=== PATIENT | female | born 1940 | race Two or more races ===

== ENCOUNTER 2017-06-02 07:02 | Inpatient (IN) | payer OTHER, MEDICARE ==
[~2017-06-02] VITALS: Ht 157.5 cm; Wt 72.4 kg
[2017-06-02] MEDS ORDERED: FLUT50SP EACH NARE (07:52)
[2017-06-02] MEDS ORDERED: RALO1TAB PO (07:52)
[2017-06-02] MEDS ORDERED: OMEP20TA PO (07:52)
[2017-06-02] MEDS ORDERED: CALC950T2 PO (07:52)
[2017-06-02] MEDS ORDERED: VENTAER INH (07:52)
[2017-06-02] MEDS ORDERED: PRAV20TA2 PO (07:52)
[2017-06-02] MEDS ORDERED: LOSA50TA2 PO (07:52)
[2017-06-02] MEDS ORDERED: MONT10TA4 PO (07:55)
[2017-06-02] MEDS ORDERED: ASPI81CH PO (07:55)
[2017-06-02] MEDS ORDERED: POVIDONE IODINE 5% (ANTISEPSIS KIT) 4 APPLICATIONS EACH NARE PRN (08:00)
[2017-06-02] MEDS ORDERED: SODIUM CHLORID 0.9% 500 ML IV PRN (08:00)
[2017-06-02] MEDS ORDERED: ceFAZolin 2 GM PREMIX 50 ML IV SCH (08:00)
[2017-06-02] MEDS ORDERED: CHLORHEXIDINE GLUCONATE 2 % 1 PACK (2 CLOTHS) TOPICAL PRN (08:00)
[2017-06-02] MEDS ORDERED: INSULIN HUMAN REGULAR 1,000 UNITS/10 ML VIAL SQ PRN (08:00)
[2017-06-02] MEDS ORDERED: POVIDONE IODINE 7.5% SCRUB 118 ML BOTTLE TOPICAL SCH (08:00)
[2017-06-02] MEDS ORDERED: METOPROLOL TARTRATE 25 MG TAB PO PRN (08:00)
[2017-06-02] MEDS ORDERED: VANCOMYCIN 1000 MG/NS 250 ML (for <70 kg) IV SCH ×2 (08:00)
[2017-06-02] MEDS ORDERED: CHLORHEXIDINE GLUCONATE 4% SOLN 120 ML BTL TOPICAL SCH (08:00)
[2017-06-02] MEDS ORDERED: LACTATED RINGER'S 1000 ML IV PRN (08:00)
[2017-06-02] MEDS ORDERED: DEXAMETHASONE SOD PHOS 20 MG/5 ML VIAL IV SCH (08:15)
[2017-06-02] MEDS ORDERED: MORPHINE SULFATE 4 MG/ML INJ IV PUSH PRN (08:30)
[2017-06-02] MEDS ORDERED: ACETAMINOPHEN/HYDROcodone 325 MG/7.5 MG TAB PO PRN (08:30)
[2017-06-02] MEDS ORDERED: Post-op Orders (for Pharmacy) MISC XX ONE (08:30)
[2017-06-02] MEDS ORDERED: SODIUM CHLORIDE 0.9% FLUSH 5 ML FLUSH IVF PRN (08:30)
[2017-06-02] MEDS ORDERED: diphenhydrAMINE HCL 50 MG/ML VIAL IV PUSH PRN (08:30)
[2017-06-02] MEDS ORDERED: BISACODYL 10 MG SUPP RECTAL PRN (08:30)
[2017-06-02] MEDS ORDERED: ONDANSETRON HCL 4 MG/2 ML VIAL IVP PRN (08:30)
[2017-06-02] MEDS ORDERED: NALOXONE HCL 0.4 MG/ML AMP IV PRN (08:30)
[2017-06-02] MEDS ORDERED: ASPI81CH14 CHEW (08:31)
[2017-06-02] MEDS ORDERED: ENOX30P SQ (08:31)
[2017-06-02] MEDS ORDERED: HYDR-3288 PO (08:32)
[2017-06-02] MEDS ORDERED: ACETAMINOPHEN 1000 MG/100 ML 100 ML IV ONE (08:53)
[2017-06-02] MEDS ORDERED: GENTAMICIN SULFATE 80 MG/2 ML VIAL ONE (08:55)
[2017-06-02] MEDS ORDERED: NON-FORMULARY DRUG (Losartan-Hydrochlorothiazide 1 TAB) PO SCH (09:00)
[2017-06-02] MEDS: HYDROCHLOROTHIAZIDE 12.5 MG CAP PO SCH (09:00)
[2017-06-02] MEDS ORDERED: SODIUM CHLORIDE 0.9% IV SCH (09:00)
[2017-06-02] MEDS ORDERED: TRANEXAMIC PERI-ARTICULAR 3,000 MG/NS 100 ML P-ARTICULR SCH ×2 (09:00)
[2017-06-02] MEDS: PANTOPRAZOLE SOD 20 MG DELAYED RELEASE TAB PO SCH (09:00)
[2017-06-02] MEDS: CALCIUM/VITAMIN D 250 MG/125 U TAB PO SCH ×2 (09:00→21:20)
[2017-06-02] MEDS: PRAVASTATIN SOD 20 MG TAB PO SCH (09:00)
[2017-06-02] MEDS: LOSARTAN 50 MG TAB PO SCH (09:00)
[2017-06-02] MEDS ORDERED: ROPIVACAINE PERI-ARTICULAR INJECTION. P-ARTICULR SCH ×5 (09:00)
[2017-06-02] MEDS ORDERED: TRANEXAMIC ACID IV SCH (09:00)
[2017-06-02] MEDS: RALOXIFENE HCL 60 MG TAB PO SCH (09:00)
[2017-06-02] MEDS ORDERED: DO NOT ADM ANY ANTICOAGULANT DRUGS PRN (11:55)
[2017-06-02] MEDS ORDERED: *morphine SULFATE 8 MG/ML PERIprocedure ONLY ONE ×2 (11:59→12:15)
[2017-06-02] MEDS ORDERED: PHENYLEPH/NS 1000 MCG/10 ML SYR IV ONE (12:00)
[2017-06-02] MEDS ORDERED: ROCURONIUM INJ 50 MG/5 ML SYRINGE IV PUSH ONE (12:00)
[2017-06-02] MEDS ORDERED: GLYCOPYRROLATE 1 MG/5 ML SYRINGE IV PUSH ONE (12:00)
[2017-06-02] MEDS ORDERED: LACTATED RINGER'S 1000 ML INJ 1,000 ML IV ONE (12:00)
[2017-06-02] MEDS ORDERED: PROPOFOL 200 MG/20 ML AMP IV ONE (12:00)
[2017-06-02] MEDS ORDERED: MIDAZOLAM HCL 2 MG/2 ML VIAL IV ONE (12:00)
[2017-06-02] MEDS ORDERED: ONDANSETRON HCL 4 MG/2 ML VIAL IV PUSH ONE (12:00)
[2017-06-02] MEDS ORDERED: NEOSTIGMINE 3 MG/3 ML SYR IV ONE (12:00)
[2017-06-02] MEDS ORDERED: LIDOCAINE HCL 1% PF 5 ML AMPULE OTHER ONE (12:00)
[2017-06-02] MEDS ORDERED: ePHEDrine/NS 25 MG/5 ML SYR IV ONE (12:00)
--- NOTE | 2017-06-02 12:47 | RADRPT ---
EXAM DATE/TIME: 06/02/2017 12:14 [place] COMPARISON: No previous studies available for comparison. INDICATIONS : Post-op total left knee arthroplasty. MEDICAL HISTORY : None. SURGICAL HISTORY : None. ENCOUNTER: Initial ACUITY: 1 day PAIN SCORE: Non-responsive. LOCATION: Left knee. FINDINGS: AP and lateral views of the knee following arthroplasty reveals a prosthesis in anatomic alignment. F racture is not appreciated. Surgical drain is evident CONCLUSION: Status post total knee arthroplasty. Franck Prajapati MD FACR Board Certified Radiologist. This report was verified electronically.
--- NOTE | 2017-06-02 12:58 | MP ---
cc: JASON PADGETT DATE OF SURGERY 06/02/2017 PREOPERATIVE DIAGNOSIS Left knee osteoarthritis. POSTOPERATIVE DIAGNOSIS Left knee osteoarthritis. PROCEDURE Left total knee arthroplasty. SURGEON Dr. Jason Padgett SHOP SERVICE TECHNICIAN John Paul Erickson PA-C ANESTHESIA General with an adductor canal nerve block. ESTIMATED BLOOD LOSS 50 cc COMPLICATIONS None. IMPLANTS USED DePuy Attune size 6 narrow, posterior stabilized femoral component size 5, rotating platform tibia baseplate; size 6 mm polyethylene tibial insert, size 6 tibial insert, 35 patella. JUSTIFICATION This patient is a 76-year-old family with history of severe end-stage osteoarthritis involving the left knee. She has severe disabling pain with standing, walking, ambulation with weightbearing activities and severe pain at rest. It does interfere with activities of daily living. She has failed greater than three months of nonoperative conservative treatment to include medication therapy, injections, ambulatory assistive aids, home exercise program, activity modification and weight loss. X-rays of the left knee reveal severe end-stage osteoarthritis, [id number] joint space narrowing, subchondral sclerosis, subchondral cysts, osteophyte formation with large varus deformity. The patient was counseled as to the risks, benefits and alternatives to a total knee arthroplasty. The risks were discussed which include but are not limited to anesthesia, bleeding, infection, damage to nerves, blood vessels, pain, stiffness, failure of the components, blood clots, pulmonary embolism and even . The patient favored the benefits over the risks, her pain was severe and she did wish to proceed with surgery. PROCEDURE IN DETAIL Written consent was obtained. The patient was identified by name, taken to the operating room, placed supine on the operating table. General anesthesia was administered as well as 2 grams of IV Ancef and 1 gram of IV vancomycin. A well-padded tourniquet was placed on the left thigh, the left lower extremity prepped and draped using isopropyl alcohol, Hibiclens solution and Chloraprep solution. After time-out was performed, an Esmarch bandage was used to exsanguinate the left lower extremity and the tourniquet inflated to 250 mmHg. A longitudinal incision was made over the anterior aspect of the left knee. A medial parapatellar arthrotomy incision was performed. The patella was everted. The patellar resection guide as used to resect 7 mm of the patella. The size 35-mm guide was placed. Three drill holes were placed and the 35-mm trial fit well. Attention was turned to the femur where an intramedullary guide was placed. The distal femoral guide was set to remove 11 mm of at 5 degrees off the anatomic valgus axis alignment. An oscillating saw was used to perform the distal femoral cut. Attention was turned to the tibia where an extramedullary tibial guide was set to remove 5 mm off the lowest portion of the medial tibial plateau. The tibial guide was pinned in place. The tibia cut was performed. A 5-mm spacer block showed full extension. Attention was turned back to the femur where the AP sizing block measured a size 6. The anterior reference 3-degree external rotation guide was used to pin a size [address] The anterior, posterior and chamfer cuts were performed. The size 6 PCL box guide was pinned in place and the PCL was boxed out with an oscillating saw. The medial and lateral meniscus remnants were removed as well as bone and soft tissue debris from the posterior portion of the knee. A size 5 tibial baseplate was pinned in place, the tibia was drilled and punched. Trial components were evaluated and final components cemented in place. With the polyethylene tibial insert, the leg could achieve full extension to 0 degrees and flexion to approximately 130. Varus-valgus balance appeared appropriate and symmetric. The patella did have some lateral tracking. A lateral release was performed which allowed for central patellar tracking. The tourniquet was deflated, Bovie cautery used for hemostasis. The surgical wound was thoroughly irrigated with sterile saline pulse lavage antibiotic impregnated solution. The arthrotomy incision was closed with #1 Vicryl suture, the subcutaneous tissue with 2-0 Vicryl suture. The skin was closed with Dermabond. Sterile dressing were applied. The patient tolerated the procedure well with no intraoperative complications noted. John Paul Erickson, physician drafter assistant certified, was present during the entire procedure to include patient positioning and the procedure itself. The medical necessity of the physician drafter assistant was indicated in this case due to the complexity of the procedure itself. He assisted with appropriate manipulation of the leg and also retraction of muscle, tendon, bone and neurovascular structures. He assisted also with implantation of the bone and also implantation of the prosthetic replacement. MD JÚNIOR Colón/DARIEL Mcleod: 06/02/2017/11:29 AM /12:30 PM
[2017-06-02] MEDS: SODIUM CHLOR 0.9% 1000 ML INJ 1,000 ML IV SCH ×2 (13:00→21:22)
[2017-06-02] MEDS ORDERED: *ONDANSETRON 4 MG VIAL PERIprocedural Use ONLY ONE (15:34)
--- NOTE | 2017-06-02 16:46 | PD.CONS ---
HPI Service [facility] Consult Requested By Orthopedic surgery Reason for Consult Medical management Primary Care Physician Hunter Arnold MD Diagnoses: (1) Osteoarthritis of left knee (2) HTN (hypertension) (3) GERD (gastroesophageal reflux disease) History of Present Illness Ms. Hdz is a 76 year old female with a history of hypertension, GERD and osteoarthritis who underwent elective left total knee arthroplasty on 2016. Patient's daughter provides much of the history. Patient has been suffering from osteoarthritis of her knee for more than 4-5 years. Despite aggressive non-surgical management, patient's symptoms have not improved which led to consideration of surgical intervention. At the time of this interview in the PACU, patient denies any acute concerns. Her pain is well controlled. No chest pain, SOB, fever, chills. No changes in bowel or bladder habits. Review of Systems Except as stated in HPI: all other systems reviewed are Neg Past Family Social History Allergies: Coded Allergies: No Known Allergies (Unverified , 06/02/17) Past Medical History Seasonal allergies Hypertension GERD Osteoarthritis Past Surgical History Tonsillectomy about 35 years ago Reported Medications Pravastatin 20mg Qday Losartan-HCTZ 50-12.5 Qday Aspirin 81mg Qday Calcitrate 600mg BID Montelukast 10mg QHS Fluticasone Omeprazole 20mg Qday Raloxifene 60mg Qday Family History No family history of heart disease, Alzheimer's or Parkinson's. Social History Does not use tobacco, alcohol or illicit drugs. Physical Exam Vital Signs Vital Signs Date Time Temp Pulse Resp B/P (MAP) Pulse Ox O2 Delivery O2 Flow Rate FiO2 06/02/17 15:00 100 16 150/73 (98) 100 Nasal Cannula 2 06/02/17 13:30 95 16 142/66 (91) 100 Nasal Cannula 2 06/02/17 13:00 98.6 96 16 147/68 (94) 100 Nasal Cannula 2 06/02/17 12:45 97 16 144/67 (92) 100 Nasal Cannula 2 06/02/17 12:30 99 18 145/56 (85) 98 Nasal Cannula 2 06/02/17 12:15 97 18 143/67 (92) 98 Nasal Cannula 2 06/02/17 12:00 99 16 142/66 (91) 100 Nasal Cannula 2 06/02/17 11:54 98.5 105 18 146/67 (93) 100 Nasal Cannula 2 06/02/17 07:30 99.0 77 20 140/74 (96) 97 Physical Exam GENERAL: This is a well-nourished, well-developed patient, in no apparent distress. SKIN: No rashes, ecchymoses or lesions. Warm and dry. HEAD: Atraumatic. Normocephalic. No temporal or scalp tenderness. EYES: Pupils equal round and reactive. No injection or drainage. ENT: Nose without bleeding, purulent drainage or septal hematoma. Airway patent. NECK: Trachea midline. No lymphadenopathy. Supple, nontender, no meningeal signs. CARDIOVASCULAR: Regular rate and rhythm without murmurs, gallops, or rubs. No JVD. RESPIRATORY: Clear to auscultation. Breath sounds equal bilaterally. No wheezes , rales, or rhonchi. GASTROINTESTINAL: Abdomen soft, non-tender, nondistended. No guarding. MUSCULOSKELETAL: Extremities without clubbing, cyanosis, or edema. s/p left total knee arthroplasty. Able to move all toes. NEUROLOGICAL: Awake and alert. Cranial nerves II through XII intact. No focal neurological deficits. Normal speech. Imaging Last Impressions Knee X-Ray 06/02/17 0828 Signed Impressions: Service Date/Time: Friday, June 02, 2017 12:14 - CONCLUSION: Status post total knee arthroplasty. Farnck Prajapati MD Assessment and Plan Problem List: (1) Osteoarthritis of left knee ICD Code: M17.12 - Unilateral primary osteoarthritis, left knee (2) HTN (hypertension) ICD Code: I10 - Essential (primary) hypertension (3) GERD (gastroesophageal reflux disease) ICD Code: K21.9 - Gastro-esophageal reflux disease without esophagitis Assessment and Plan Ms. Hdz is a 76 year old female with a history of GERD, HTN, osteoarthritis who underwent elective left total knee arthroplasty. - Left knee osteoarthritis - s/p Left total knee arthroplasty 06/02/2017. - [place] PO and Morphine IV PRN for pain. - Lovenox 30mg Qday starting 06/03/2017. - Colace, Milk of Mag PRN - Continue Raloxifene 60mg Qday. - Hypertension - Hyperlipidemia - HCTZ 12.5mg Qday, Losartan 50mg Qday. - Continue Pravastatin 20mg Qday. - Allergies - Continue Montelukast 10mg QHS. - GERD - Continue PPI. Full code. Lovenox starting 06/03/2017. Thank you for the consult. We will continue to follow the patient with you. Sharri Marie DO Jun 02, 2017 16:45
[2017-06-02 16:48] VITALS: BP 122/67; PULSE 98; RESP 19; TEMP 95.9; O2SAT 99
[2017-06-02] MEDS ORDERED: MAGNESIUM HYDROXIDE SUSP 30 ML CUP PO PRN (18:30)
[2017-06-02 20:41] VITALS: BP 126/69; PULSE 89; RESP 18; TEMP 96.8; O2SAT 100
[2017-06-02] MEDS ORDERED: ZOLPIDEM TARTRATE 5 MG TAB PO PRN (21:00)
[2017-06-02] MEDS: SODIUM CHLORIDE 0.9% FLUSH 5 ML FLUSH IVF SCH (21:00)
[2017-06-02] MEDS: MONTELUKAST SODIUM 10 MG TAB PO SCH (21:20)
[2017-06-03] VITALS (10 sets, daily range): BP systolic 96–137; BP diastolic 52–67; PULSE 78–94; RESP 17–18; TEMP 96.5–100; O2SAT 94–100
[2017-06-03] MEDS: ACETAMINOPHEN/HYDROcodone 325 MG/7.5 MG TAB PO PRN ×2 (02:10→06:10)
[2017-06-03] MEDS: SODIUM CHLOR 0.9% 1000 ML INJ 1,000 ML IV SCH ×2 (04:28→14:28)
[2017-06-03 07:04] LABS: MEAN CELL VOLUME 87.2 FL (80.0-100.0); MEAN CORPUSCULAR HEMOGLOBIN 28.2 PG (27.0-34.0); MEAN CORPUSCULAR HGB CONC 32.4 % (32.0-36.0); PLATELET COUNT 194 TH/MM3 (150-450); RED BLOOD COUNT 3.44 MIL/MM3 (4.00-5.30); RED CELL DISTRIBUTION WIDTH 13.6 % (11.6-17.2); REVIEW FLAG FINAL; WHITE BLOOD COUNT 14.9 TH/MM3 (4.0-11.0)
[2017-06-03 07:13] LABS: BICARBONATE 28.2 MEQ/L (21.0-32.0); POTASSIUM 4.2 MEQ/L (3.5-5.1)
--- NOTE | 2017-06-03 08:13 | PD.ORT.PN ---
Subjective Post Op Day #: 1 Subjective Remarks no family in room and does not speak Yemeni. does not appear to be in discomfort. Objective Vitals Vital Signs Date Time Temp Pulse Resp B/P (MAP) Pulse Ox O2 Delivery O2 Flow Rate FiO2 06/03/17 04:31 96.5 87 17 99/62 (74) 99 06/03/17 03:31 99 Nasal Cannula 2.00 06/03/17 00:29 97.0 90 18 104/55 (71) 100 06/02/17 20:41 96.8 89 18 126/69 (88) 100 06/02/17 16:48 95.9 98 19 122/67 (85) 99 06/02/17 15:00 100 16 150/73 (98) 100 Nasal Cannula 2 06/02/17 13:30 95 16 142/66 (91) 100 Nasal Cannula 2 06/02/17 13:00 98.6 96 16 147/68 (94) 100 Nasal Cannula 2 06/02/17 12:45 97 16 144/67 (92) 100 Nasal Cannula 2 06/02/17 12:30 99 18 145/56 (85) 98 Nasal Cannula 2 06/02/17 12:15 97 18 143/67 (92) 98 Nasal Cannula 2 06/02/17 12:00 99 16 142/66 (91) 100 Nasal Cannula 2 06/02/17 11:54 98.5 105 18 146/67 (93) 100 Nasal Cannula 2 I/O 06/02/17 06/02/17 06/02/17 06/03/17 06/03/17 06/03/17 07:00 15:00 23:00 07:00 15:00 23:00 Intake Total 1250 ml 898 ml 860 ml Output Total 3550 ml 600 ml 800 ml Balance -2300 ml 298 ml 60 ml Intake Oral 240 ml 120 ml IV Total 1250 ml 658 ml 740 ml Output Urine Total 450 ml 600 ml 800 ml Estimated Blood Loss 100 ml Other 3000 ml # Bowel Movements 0 0 Result Diagram: 06/03/17 0550 06/03/17 0550 Imaging Last 24 hours Impressions Knee X-Ray 06/02/17 0828 Signed Impressions: Service Date/Time: Friday, June 02, 2017 12:14 - CONCLUSION: Status post total knee arthroplasty. Franck Prajapati MD Objective Remarks in bed, nad dressing c/d/i neg anya nvi Assessment & Plan Ortho Post Op Day #: 1 Problem List: Assessment and Plan s/p L TKA wbat daily dressing changes lovenox d/c planning home vs snf rx in chart f/up dr. perez 2 weeks Roney Erickson Jun 03, 2017 08:13
--- NOTE | 2017-06-03 08:14 | HHI.DCPOC ---
Discharge Care Plan Diagnosis: (1) Osteoarthritis of left knee Your Health Problems Are: Difficulty with ADL Goals to Promote Your Health * To prevent worsening of your condition and complications * To maintain your health at the optimal level Directions to Meet Your Goals Take your medications as prescribed Follow your dietary instruction Follow activity as directed Keep your appointments as scheduled Take your immunizations and boosters as scheduled If your symptoms worsen call your PCP, if no PCP go to Urgent Care Center or Emergency Room Smoking is Dangerous to Your Health. Avoid second hand smoke Call the 24-hour hour crisis hotline for domestic abuse at Roney Erickson Jun 03, 2017 08:14
--- NOTE | 2017-06-03 08:14 | HHI.FF ---
Face to Face Verification Diagnosis: (1) Osteoarthritis of left knee Physical Therapy Gait training, Safety evaluation, Transfer training, bed to chair Knee: Total knee, Protocol: Left, Full weight bearing Left LE Weight Bearing: WB as tolerated Nursing RN: 3 days/week x 2 weeks Nursing: Zak teaching, Dressing changes Dressing Changes: Daily dressing change I have seen patient Adela Hdz on 06/03/17. My clinical findings support the need for the requested home health care services because: Limited ability to care for self High risk of falls I certify that my clinical findings support that this patient is homebound because: Post-op weakness Unsteady gait/balance Roney Erickson Jun 03, 2017 08:14
[2017-06-03] MEDS ORDERED: CPMMACHINE (08:16)
[2017-06-03] MEDS ORDERED: COMMODE 3-IN-11 MIS (08:16)
[2017-06-03] MEDS ORDERED: WALKER WHEELS/F1 MIS (08:16)
[2017-06-03] MEDS: SODIUM CHLORIDE 0.9% FLUSH 5 ML FLUSH IVF SCH ×2 (09:00→21:00)
[2017-06-03] MEDS: HYDROCHLOROTHIAZIDE 12.5 MG CAP PO SCH (09:00)
[2017-06-03] MEDS: RALOXIFENE HCL 60 MG TAB PO SCH (09:00)
[2017-06-03] MEDS: LOSARTAN 50 MG TAB PO SCH (09:00)
[2017-06-03] MEDS: PRAVASTATIN SOD 20 MG TAB PO SCH (10:01)
[2017-06-03] MEDS: PANTOPRAZOLE SOD 20 MG DELAYED RELEASE TAB PO SCH (10:01)
[2017-06-03] MEDS: CALCIUM/VITAMIN D 250 MG/125 U TAB PO SCH ×2 (10:03→21:47)
[2017-06-03] MEDS: MONTELUKAST SODIUM 10 MG TAB PO SCH (21:47)
[2017-06-03] MEDS: DOCUSATE SODIUM 100 MG CAP PO SCH (21:47)
[2017-06-03] MEDS: MULTIVITAMINS/MINERALS THERAPEUTIC TAB PO SCH (21:47)
[2017-06-03] MEDS: ENOXAPARIN SODIUM 30 MG/0.3 ML SYRINGE SQ SCH ×2 (21:52)
--- NOTE | 2017-06-03 22:23 | HHI.PR ---
Subjective Remarks Patient was seen in the morning. Follow up for left knee osteoarthritis s/p left TKA. Patient is doing well. No acute concerns. Daughter at bedside. Patient had BM yesterday morning but not today. Objective Vitals Vital Signs Date Time Temp Pulse Resp B/P (MAP) Pulse Ox O2 Delivery O2 Flow Rate FiO2 06/03/17 20:33 96 06/03/17 19:13 Room Air 06/03/17 19:02 100.0 92 18 133/65 (87) 96 06/03/17 16:00 97.3 87 18 129/66 (87) 98 06/03/17 12:00 97.7 78 18 105/52 (69) 95 06/03/17 08:22 96 21 06/03/17 08:00 97.9 82 18 96/52 (67) 94 06/03/17 04:31 96.5 87 17 99/62 (74) 99 06/03/17 03:31 99 Nasal Cannula 2.00 06/03/17 00:29 97.0 90 18 104/55 (71) 100 I/O 06/02/17 06/02/17 06/02/17 06/03/17 06/03/17 06/03/17 07:00 15:00 23:00 07:00 15:00 23:00 Intake Total 1250 ml 898 ml 860 ml 600 ml 480 ml Output Total 3550 ml 600 ml 800 ml Balance -2300 ml 298 ml 60 ml 600 ml 480 ml Intake Oral 240 ml 120 ml 600 ml 480 ml IV Total 1250 ml 658 ml 740 ml Output Urine Total 450 ml 600 ml 800 ml Estimated Blood Loss 100 ml Other 3000 ml # Voids 2 3 # Bowel Movements 0 0 0 0 Result Diagram: 06/03/17 0550 06/03/17 0550 Imaging Last Impressions Knee X-Ray 06/02/17827 Signed Impressions: Service Date/Time: Friday, June 02, 2017 12:14 - CONCLUSION: Status post total knee arthroplasty. Franck Prajapati MD Objective Remarks GENERAL: Alert, NAD. SKIN: Warm and dry. HEAD: Normocephalic. EYES: No scleral icterus. No injection or drainage. NECK: Supple, trachea midline. No JVD or lymphadenopathy. CARDIOVASCULAR: Regular rate and rhythm without murmurs, gallops, or rubs. RESPIRATORY: Breath sounds equal bilaterally. No accessory muscle use. GASTROINTESTINAL: Abdomen soft, non-tender, nondistended. MUSCULOSKELETAL: No cyanosis, or edema. s/p left TKA. Able to move all toes. BACK: Nontender without obvious deformity. No CVA tenderness. Procedures Left TKA 06/02/2017 A/P Problem List: (1) Osteoarthritis of left knee ICD Code: M17.12 - Unilateral primary osteoarthritis, left knee (2) HTN (hypertension) ICD Code: I10 - Essential (primary) hypertension (3) GERD (gastroesophageal reflux disease) ICD Code: K21.9 - Gastro-esophageal reflux disease without esophagitis Assessment and Plan Ms. Hdz is a 76 year old female with a history of GERD, HTN, osteoarthritis who underwent elective left total knee arthroplasty. - Left knee osteoarthritis - s/p Left total knee arthroplasty 06/02/2017. - [place] PO and Morphine IV PRN for pain. - Lovenox 30mg Qday - Colace, Milk of Mag PRN - Continue Raloxifene 60mg Qday. - Hypertension - Hyperlipidemia - HCTZ 12.5mg Qday, Losartan 50mg Qday. - Continue Pravastatin 20mg Qday. - Allergies - Continue Montelukast 10mg QHS. - GERD - Continue PPI. Full code. Lovenox Problem Qualifiers (1) Osteoarthritis of left knee: Qualified Codes: M17.12 - Unilateral primary osteoarthritis, left knee Sharri Marie DO Jun 03, 2017 22:23
[2017-06-04] MEDS: SODIUM CHLOR 0.9% 1000 ML INJ 1,000 ML IV SCH ×2 (00:28→10:28)
[2017-06-04 08:00] VITALS: BP 116/65; PULSE 103; RESP 18; TEMP 99; O2SAT 96
--- NOTE | 2017-06-04 08:07 | PD.ORT.PN ---
Subjective Post Op Day #: 2 Subjective Remarks no family in room and does not speak Ecuadorean. does not appear to be in discomfort. Objective Vitals Vital Signs Date Time Temp Pulse Resp B/P (MAP) Pulse Ox O2 Delivery O2 Flow Rate FiO2 06/03/17 23:59 99.0 94 18 137/67 (90) 97 06/03/17 20:33 96 06/03/17 19:13 Room Air 06/03/17 19:02 100.0 92 18 133/65 (87) 96 06/03/17 16:00 97.3 87 18 129/66 (87) 98 06/03/17 12:00 97.7 78 18 105/52 (69) 95 06/03/17 08:22 96 21 I/O 06/03/17 06/03/17 06/03/17 06/04/17 06/04/17 06/04/17 07:00 15:00 23:00 07:00 15:00 23:00 Intake Total 860 ml 600 ml 480 ml 480 ml Output Total 800 ml Balance 60 ml 600 ml 480 ml 480 ml Intake Oral 120 ml 600 ml 480 ml 480 ml IV Total 740 ml Output Urine Total 800 ml # Voids 2 3 4 # Bowel Movements 0 0 0 0 Result Diagram: 06/03/17 0550 06/03/17 0550 Imaging Last 24 hours Impressions Knee X-Ray 06/02/17827 Signed Impressions: Service Date/Time: Friday, June 02, 2017 12:14 - CONCLUSION: Status post total knee arthroplasty. Franck Prajapati MD Objective Remarks in chair, nad incision no erythema, no drainage neg homans nvi Assessment & Plan Ortho Post Op Day #: 2 Problem List: Assessment and Plan s/p L TKA wbat daily dressing changes lovenox OOB and IS d/c planning home vs snf - cleared when insurance authorized rx in chart f/up dr. perez 2 weeks Roney Erickson Jun 04, 2017 08:07
[2017-06-04] MEDS: SODIUM CHLORIDE 0.9% FLUSH 5 ML FLUSH IVF SCH (09:00)
[2017-06-04] MEDS: ACETAMINOPHEN/HYDROcodone 325 MG/7.5 MG TAB PO PRN (09:40)
[2017-06-04] MEDS: DOCUSATE SODIUM 100 MG CAP PO SCH (09:44)
[2017-06-04] MEDS: HYDROCHLOROTHIAZIDE 12.5 MG CAP PO SCH (09:44)
[2017-06-04] MEDS: LOSARTAN 50 MG TAB PO SCH (09:44)
[2017-06-04] MEDS: CALCIUM/VITAMIN D 250 MG/125 U TAB PO SCH (09:46)
[2017-06-04] MEDS: PRAVASTATIN SOD 20 MG TAB PO SCH (09:46)
[2017-06-04] MEDS: RALOXIFENE HCL 60 MG TAB PO SCH (09:46)
[2017-06-04] MEDS: MULTIVITAMINS/MINERALS THERAPEUTIC TAB PO SCH (09:47)
[2017-06-04] MEDS: PANTOPRAZOLE SOD 20 MG DELAYED RELEASE TAB PO SCH (09:47)
[2017-06-04 11:19] LABS: BLOOD, URINE NEG (NEG); GLUCOSE,URINE NEG (NEG); KETONE, URINE NEG (NEG); NITRITE,URINE NEG (NEG); PH, URINE 6.5 (5.0-8.5); SQUAMOUS EPITHELIAL CELL URINE <1 /hpf (0-5); URINE COLOR LIGHT-YELLOW (YELLW/STRAW)
[2017-06-04 11:35] LABS: COMMENT (UR) CULT NOT INDICATED; CULTURE IF INDICATED CULT NOT INDICATED
[2017-06-04 11:40] VITALS: BP 112/56; PULSE 100; RESP 18; TEMP 99.9; O2SAT 98
[2017-06-04 12:18] LABS: HEMATOCRIT 32.6 % (35.0-46.0); MEAN CELL VOLUME 87.6 FL (80.0-100.0); MEAN CORPUSCULAR HEMOGLOBIN 28.4 PG (27.0-34.0); MEAN CORPUSCULAR HGB CONC 32.4 % (32.0-36.0); PLATELET COUNT 230 TH/MM3 (150-450); RED BLOOD COUNT 3.72 MIL/MM3 (4.00-5.30); REVIEW FLAG FINAL; WHITE BLOOD COUNT 17.4 TH/MM3 (4.0-11.0)
[2017-06-04 12:43] LABS: BICARBONATE 29.3 MEQ/L (21.0-32.0); POTASSIUM 4.1 MEQ/L (3.5-5.1)
--- NOTE | 2017-06-04 14:09 | HHI.PR ---
Subjective Remarks Daughter at bedside helped translate since patient does not speak surinamese Patient's daughter states patient is going frequently to the bathroom to urinate Patient is c/o more pain on the left knee than yesterday T max 100.0, however patient's daughter states because she was chilli, thermostat temperature was raised No reports of cough and diarrhea, denies dysuria Objective Vitals Vital Signs Date Time Temp Pulse Resp B/P (MAP) Pulse Ox O2 Delivery O2 Flow Rate FiO2 06/04/17 11:40 99.9 100 18 112/56 (74) 98 06/04/17 08:00 99.0 103 18 116/65 (82) 96 06/03/17 23:59 99.0 94 18 137/67 (90) 97 06/03/17 20:33 96 06/03/17 19:13 Room Air 06/03/17 19:02 100.0 92 18 133/65 (87) 96 06/03/17 16:00 97.3 87 18 129/66 (87) 98 I/O 06/03/17 06/03/17 06/03/17 06/04/17 06/04/17 06/04/17 07:00 15:00 23:00 07:00 15:00 23:00 Intake Total 860 ml 600 ml 480 ml 480 ml Output Total 800 ml Balance 60 ml 600 ml 480 ml 480 ml Intake Oral 120 ml 600 ml 480 ml 480 ml IV Total 740 ml Output Urine Total 800 ml # Voids 2 3 4 # Bowel Movements 0 0 0 0 Result Diagram: 06/04/17 1200 06/04/17 1200 Imaging Last Impressions Knee X-Ray 06/02/17827 Signed Impressions: Service Date/Time: Friday, June 02, 2017 12:14 - CONCLUSION: Status post total knee arthroplasty. Franck Prajapati MD Objective Remarks ENERAL: Alert, NAD. SKIN: Warm and dry. HEAD: Normocephalic. EYES: No scleral icterus. No injection or drainage. NECK: Supple, trachea midline. No JVD or lymphadenopathy. CARDIOVASCULAR: Regular rate and rhythm without murmurs, gallops, or rubs. RESPIRATORY: Breath sounds equal bilaterally. No accessory muscle use. GASTROINTESTINAL: Abdomen soft, non-tender, nondistended. MUSCULOSKELETAL: No cyanosis, or edema. s/p left TKA. Able to move all toes. Left knee swollen but no major erythema noted. BACK: Nontender without obvious deformity. No CVA tenderness. Procedures Left TKA 06/02/2017 Medications and IVs Current Medications Medications (Trade) Dose Ordered Sig/Gabriel Route Start Time Stop Time Status Last Admin (Lopressor) 25 mg PROFESSOR OF GENETICS PRN PO 06/02/17 08:00 06/05/17 07:59 (Singulair) 10 mg HS PO 06/02/17 21:00 06/03/17 21:47 (Pravachol) 20 mg DAILY PO 06/02/17 09:00 06/04/17 09:46 (Evista) 60 mg DAILY PO 06/02/17 09:00 06/04/17 09:46 (Oscal-D 250-125) 500 mg BID PO 06/02/17 09:00 06/04/17 09:46 (Protonix) 20 mg DAILY PO 06/02/17 09:00 06/04/17 09:47 Sodium Chloride 1,000 ml @ 100 mls/hr Q10H IV 06/02/17 08:28 06/02/17 21:22 (NS Flush) 2 ml UNSCH PRN IVF 06/02/17 08:30 (NS Flush) 2 ml BID IVF 06/02/17 09:00 06/03/17 09:00 (Lovenox Inj) 30 mg Q24H SQ 06/03/17 00:00 06/03/17 21:52 (Morphine Inj) 3 mg Q3H PRN IV PUSH 06/02/17 08:30 ([place] 7.5-325 Mg) 1 tab Q4H PRN PO 06/02/17 08:30 06/04/17 09:40 ([place] 7.5-325 Mg) 2 tab Q4H PRN PO 06/02/17 08:30 06/04/17 13:47 (Theragran M Tab) 1 tab BID PO 06/03/17 21:00 08/02/17 20:59 06/04/17 09:47 (Zofran Inj) 4 mg Q6H PRN IVP 06/02/17 08:30 (Colace) 100 mg BID PO 06/03/17 21:00 06/04/17 09:44 (Ambien) 5 mg HS PRN PO 06/02/17 21:00 (Dulcolax Supp) 10 mg DAILY PRN RECTAL 06/02/17 08:30 (Narcan Inj) 0.4 mg UNSCH PRN IV 06/02/17 08:30 (Benadryl Inj) 25 mg Q6H PRN IV PUSH 06/02/17 08:30 (Cozaar) 50 mg DAILY PO 06/02/17 09:00 06/04/17 09:44 (Microzide) 12.5 mg DAILY PO 06/02/17 09:00 06/04/17 09:44 (Milk Of Magnesia Liq) 30 ml DAILY PRN PO 06/02/17 18:30 A/P Problem List: (1) Osteoarthritis of left knee ICD Code: M17.12 - Unilateral primary osteoarthritis, left knee (2) HTN (hypertension) ICD Code: I10 - Essential (primary) hypertension (3) GERD (gastroesophageal reflux disease) ICD Code: K21.9 - Gastro-esophageal reflux disease without esophagitis Assessment and Plan Ms. Hdz is a 76 year old female with a history of GERD, HTN, osteoarthritis who underwent elective left total knee arthroplasty. - Left knee osteoarthritis - s/p Left total knee arthroplasty 06/02/2017. - [place] PO and Morphine IV PRN for pain. - Lovenox 30mg Qday - Colace, Milk of Mag PRN - Continue Raloxifene 60mg Qday. - Hypertension - Hyperlipidemia - HCTZ 12.5mg Qday, Losartan 50mg Qday. - Continue Pravastatin 20mg Qday. - 06/04 JENNIE stable. Continue management as above. - Allergies - Continue Montelukast 10mg QHS. Stable - GERD - Continue PPI. - Low grade fever: UA negative and no respiratory issues. WBCs higher than yesterday from 14.9 to 17.4K however this could be reactive to pain. Continue pain control as per orthopedic surgery. Patient is cleared to be discharged with incentive spirometry. Full code. Lovenox Discharge Planning Clear for DC. Problem Qualifiers (1) Osteoarthritis of left knee: Qualified Codes: M17.12 - Unilateral primary osteoarthritis, left knee Tono Galan MD Jun 04, 2017 14:09
--- NOTE | 2017-06-05 14:27 | MD ---
cc: JASON PADGETT M.D. ADMISSION DATE: 06/02/2017 DISCHARGE DATE: 06/04/2017 ADMISSION DIAGNOSIS Severe degenerative osteoarthritis left knee. DISCHARGE DIAGNOSIS Severe degenerative osteoarthritis left knee. HISTORY OF PRESENT ILLNESS Ms. Hdz is a 76-year-old female who presented to the [facility] for evaluation by Dr. Jason Padgett regarding her progressive left knee pain. The patient via her family acting as translators states her left knee pain has been bothering her for several years' duration and currently is inhibiting her ability to ambulate and her activities of daily living. She states it is a severe, constant aching sensation aggravated with weightbearing activities. She has no alleviating factors at this point in time, although in the past she has tried medications, bracing, physical therapy, home exercises and multiple corticosteroid injections without relief of symptoms. She does have x-ray evidence of severe degenerative osteoarthritis of the left knee. While in the office the patient and the patient's family were counseled on her diagnosis and treatment options. The risks, benefits and indications were all discussed. The patient did elect proceed with surgical intervention to include a left total knee arthroplasty. DATE OF SURGERY 06/02/2017 PROCEDURE PERFORMED Left total knee arthroplasty. POSTOP After surgery the patient was admitted to [facility] where she received appropriate medical management, pain control, DVT prophylaxis, as well as physical therapy. DISCHARGE Once being discharged from the hospital the patient was cleared to go to a longterm facility. She is in stable condition. DISCHARGE INSTRUCTIONS She may weight-bear as tolerated. The patient is to receive daily dressing changes. She has been instructed on proper wound care management. FOLLOWUP Patient has been provided follow-up appointment approximately two weeks from her date of surgery. DISCHARGE MEDICATIONS She has also been provided prescriptions for pain control as well as DVT prophylaxis medication. The patient has asked appropriate questions as well as her family which have all been answered. The patient has been discharged to the longterm facility. Dictated by: John Paul Erickson PA-C Jason Padgett MD JWM/SSB /8:10 AM /2:19 PM
== END 2017-06-04 15:57 | DRG 470 ==
LOC: HSDI 07:02 → N06B 16:25
PROVIDERS: ADMIT Orthopaedic Surgery Sports Medicine; ATTEND Orthopaedic Surgery Sports Medicine
PROC: 3E0T3BZ Introduction of Anesthetic Agent into Peripheral Nerves and Plexi, Percutaneous Approach (ICD-10-PCS; 2017-06-02)
PROC: 0SRD0J9 Replacement of Left Knee Joint with Synthetic Substitute, Cemented, Open Approach (ICD-10-PCS; principal; 2017-06-02 09:15)
DX: M17.12 Unilateral primary osteoarthritis, left knee (principal); R50.9 Fever, unspecified; I10 Essential (primary) hypertension; M21.162 Varus deformity, not elsewhere classified, left knee; K21.9 Gastro-esophageal reflux disease without esophagitis; M25.762 Osteophyte, left knee; E78.5 Hyperlipidemia, unspecified
CPT/HCPCS: 73560; 80048; 81001; 85027; 86850; 86900; 86901; 94150; C1776; J0131; J0690; J0735; J1100; J1580; J1650; J1885; J2250; J2270; J2370; J2405; J2710; J2795; J3010; J3370; J7030; J7050; J7120; L1830